=== PATIENT | male | born 1995 | race Caucasian/White ===

== ENCOUNTER 2018-08-06 11:15 | Emergency (ER) | payer OTHER ==
[~2018-08-06] VITALS: Ht 190.5 cm; Wt 79.4 kg
[2018-08-06 11:23] VITALS: Ht 190.5 cm; Wt 79.4 kg
[2018-08-06 12:16] LABS: CALCIUM 9.1 mg/dL (8.5-10.1); CARBON DIOXIDE 27.4 mmol/L (21-32); CHLORIDE SERUM 101 mmol/L (98-107); CREATININE SERUM 1.1 mg/dL (0.7-1.3); GFR1 > 60 mL/min; GLUCOSE SERUM 86 mg/dL (74-106); POTASSIUM SERUM 4.5 mmol/L (3.5-5.1); SODIUM SERUM 137 mmol/L (136-145)
[2018-08-06 12:21] VITALS: BP 143/83
[2018-08-06 12:21] LABS: ALBUMIN 3.7 g/dL (3.4-5.0); ALKALINE PHOSPHATASE 90 U/L (46-116); ALT/SGPT 75 U/L (16-63); AST/SGOT 42 U/L (15-37); BILIRUBIN TOTAL 0.3 mg/dL (0.20-1.00); CHOLESTEROL 144 mg/dL (<200); TOTAL PROTEIN, SERUM 7.3 g/dL (6.4-8.2)
[2018-08-06 12:27] LABS: BASOPHIL % 0.9 % (0-2); PLATELET COUNT 164 x10^3mcL (130-400); RED CELL DISTRIBUTION WIDTH 15.1 % (11.5-14.5)
[2018-08-06 12:57] LABS: AMPHETAMINE QUAL UR NONE DETECTED (See below)
== END 2018-08-06 13:04 | disposition home or self-care (01) ==
LOC: ED 11:15
PROVIDERS: Specialist
DX: R56.9 Unspecified convulsions (principal); F32.9 Major depressive disorder, single episode, unspecified; F10.20 Alcohol dependence, uncomplicated
CPT/HCPCS: 36415; G0480